=== PATIENT | male | born 1950 | race Two or more races ===

== ENCOUNTER 2024-10-06 09:53 | Outpatient (CLI) | payer OTHER | END 2024-10-06 10:00 | disposition home or self-care (01) | LOC: NUCLEAR 09:53 | DX: I73.9 Peripheral vascular disease, unspecified (principal); I87.2 Venous insufficiency (chronic) (peripheral) ==

== ENCOUNTER 2024-10-22 09:51 | Outpatient (CLI) | payer OTHER | END 2024-10-22 09:54 | disposition home or self-care (01) | LOC: NUCLEAR 09:51 | PROVIDERS: ATTEND Internal Medicine | DX: I87.2 Venous insufficiency (chronic) (peripheral) (principal); I73.9 Peripheral vascular disease, unspecified ==

== ENCOUNTER 2025-03-02 14:05 | Emergency (ER) | payer OTHER ==
[~2025-03-02] VITALS: Ht 165.1 cm; Wt 70.3 kg
[2025-03-02 14:14] VITALS: BP 132/82; O2SAT 100
[2025-03-02] MEDS ORDERED: LOSARTAN POTASS25 MG PO (14:15)
[2025-03-02] MEDS ORDERED: ATORVASTATIN CA10 MG PO (14:15)
[2025-03-02] MEDS ORDERED: GABAPENTIN100 M2 PO (14:15)
[2025-03-02] MEDS ORDERED: HUMULIN 70100 UNIT/2 SQ (14:15)
[2025-03-02 15:48] LABS: HEMATOCRIT 35.6 % (39.0-48.0); HEMOGLOBIN 12.2 g/dL (13-16.00); MEAN CELL VOLUME 94.1 fL (80.0-100.00); MEAN CORPUSCULAR HEMOGLOBIN 32.3 pg (27.00-32.0); MEAN CORPUSCULAR HGB CONC 34.3 g/dl (32.0-36.0); PLATELET COUNT 161 K/uL (150-450); RED BLOOD COUNT 3.78 M/uL (4.00-6.00); RED CELL DISTRIBUTION WIDTH 13.3 % (11.5-14.5)
[2025-03-02 16:05] LABS: URINE APPEARANCE Cloudy; URINE BILIRRUBIN Negative (NEGATIVE); URINE BLOOD Negative; URINE COLOR Yellow; URINE GLUCOSE Negative (NEGATIVE); URINE KETONE Negative (NEGATIVE); URINE LEUKOCYTE Large; URINE NITRATE Positive; URINE PROTEIN Negative (NEGATIVE); URINE UROBILINOGEN 0.2 E.U./dl
[2025-03-02 16:08] LABS: URINE EPITHELIAL CELLS 16.1 uL (0.0-38.8); URINE RBC 3.8 uL (0.0-20.8); URINE WBC 271.1 uL (0.0-23.2)
[2025-03-02 16:09] LABS: INR 1.11; PARTIAL THROMBOPLASTIN TIME 26.8 SECONDS (22.0-34.0)
[2025-03-02 16:14] LABS: URINE BACTERIA > 9821.5 uL (0.0-1933); URINE CAST 0.44 uL (0.0-1.40)
[2025-03-02 16:19] LABS: ALBUMIN 3.2 gm/dL (3.4-5.0); BILIRUBIN TOTAL 0.32 mg/dL (0.3-1.2); CALCIUM 8.9 mg/dL (8.5-10.1); CREATININE SERUM 1.1 mg/dL (0.70-1.30); GFR 65.26; GLOBULINA 4.6 G/DL (2.4-3.5); POTASSIUM 3.75 mEq/L (3.5-5.1); TOTAL PROTEIN 7.8 gm/dL (6.4-8.2)
[2025-03-02] MEDS ORDERED: CEFTRIAXONE SODIUM 1,000 MG VIAL ONE (16:54)
[2025-03-02] MEDS ORDERED: CEFTRIAXONE SODIUM 1,000 MG VIAL IM ONE (17:00)
[2025-03-02] MEDS ORDERED: CEFUROXIME500 MG PO (17:18)
[2025-03-02] MEDS ORDERED: PEPCID AC20 MG PO (17:18)
[2025-03-02] MEDS ORDERED: LIDOCAINE HCL 1% 10ML VIAL ONE (21:25)
== END 2025-03-03 00:43 | disposition home or self-care (01) ==
LOC: ER 14:05
PROVIDERS: General Practice
DX: S01.112A Laceration without foreign body of left eyelid and periocular area, initial encounter (principal); W17.89XA Other fall from one level to another, initial encounter; Y93.89 Activity, other specified; Y92.89 Other specified places as the place of occurrence of the external cause; Y99.9 Unspecified external cause status; R55 Syncope and collapse; E11.9 Type 2 diabetes mellitus without complications; Z79.4 Long term (current) use of insulin; I10 Essential (primary) hypertension
CPT/HCPCS: 12011; 36415; 70450; 71045; 93005; 96372; 99284; J0696

== ENCOUNTER 2025-03-10 09:15 | Emergency (ER) | payer OTHER ==
[~2025-03-10] VITALS: Ht 165.1 cm; Wt 70.3 kg
[~2025-03-10 09:15] MED LIST: ATORVASTATIN CA10 MG PO; CEFUROXIME500 MG PO; GABAPENTIN100 M2 PO; HUMULIN 70100 UNIT/2 SQ; LOSARTAN POTASS25 MG PO; PEPCID AC20 MG PO
== END 2025-03-10 09:59 | disposition home or self-care (01) ==
LOC: ER 09:15
DX: Z48.02 Encounter for removal of sutures (principal)

== ENCOUNTER 2025-07-13 08:16 | Inpatient (IN) | payer OTHER ==
[~2025-07-13] VITALS: Ht 165.1 cm; Wt 81.6 kg
[2025-07-13] MEDS ORDERED: LASIX20 MG PO (08:32)
[2025-07-13] MEDS ORDERED: 0.9 % SODIUM CHLORIDE 1,000 ML IV SCH ×3 (08:45→19:15)
[2025-07-13 09:18] LABS: BASO % 0.1 % (0.1-1.2); EOS # 0.02 (0.04-0.54); EOS % 0.3 % (0.7-7.0); LYMPH # 1.03 (1.18-3.74); LYMPH % 14.6 % (19.3-53.1); MEAN PLATELET VOLUME 10.00 fl (9.4-12.4); MONO # 0.54 (0.24-0.82); MONO % 7.6 % (4.7-12.5); NEUT # 5.42 (1.56-6.13); NEUT % 76.8 % (34.0-71.1); RED CELL DISTRIBUTION WIDTH 12.3 % (11.6-14.4)
[2025-07-13 09:42] LABS: BUN CREA RATIO 33.0 (7.0-25.0); CREATININE SERUM 0.57 mg/dL (0.70-1.30); GFR 138.98; GLUCOSE FASTING 151.0 mg/dL (65-100); INR 1.15; OSMOLALITY SERUM 290.0 MOSM/KG (275-295)
[2025-07-13 09:54] LABS: COVID-19 AG NEGATIVE (NEGATIVE)
[2025-07-13 10:34] LABS: URINE APPEARANCE Clear; URINE BILIRRUBIN Negative (NEGATIVE); URINE BLOOD Small; URINE COLOR Yellow; URINE GLUCOSE Negative (NEGATIVE); URINE LEUKOCYTE Negative; URINE NITRATE Negative; URINE PROTEIN 30 (NEGATIVE); URINE UROBILINOGEN 1.0 E.U./dl
[2025-07-13 10:39] LABS: URINE BACTERIA 10.7 uL (0.0-1933); URINE EPITHELIAL CELLS 9.0 uL (0.0-38.8); URINE RBC 66.7 uL (0.0-20.8); URINE WBC 9.5 uL (0.0-23.2)
[2025-07-13 10:46] LABS: URINE CAST 0.29 uL (0.0-1.40); URINE KETONE 80 (NEGATIVE)
[2025-07-13] MEDS ORDERED: FAMOTIDINE/PF 20 MG in 0.9 % SODIUM CHLORIDE 8 ML IV PUSH SCH (15:12)
[2025-07-13] MEDS ORDERED: DEXTROSE 50 % IN WATER 0.5 G/ML DISP.SYRIN IV PRN (15:15)
[2025-07-13] MEDS ORDERED: INSULIN LISPRO 1,000 UNIT/10 ML UNITS SUBCUTANEO PRN (15:15)
[2025-07-13] MEDS ORDERED: ATORVASTATIN CALCIUM 10 MG TABLET PO SCH (17:00)
[2025-07-13] MEDS ORDERED: MORPHINE SULFATE 2 MG/ML CARTRIDGE IV PRN (18:00)
[2025-07-13] MEDS ORDERED: ACETAMINOPHEN 500 MG GEL..CAP PO PRN (18:00)
[2025-07-13] MEDS ORDERED: MEPERIDINE HCL/PF 50 MG/ML VIAL IM PRN (19:15)
[2025-07-13] MEDS ORDERED: PROMETHAZINE HCL 50 MG/ML AMPUL IM PRN (19:15)
[2025-07-13 23:35] LABS: INR 1.17
[2025-07-13 23:52] LABS: URINE APPEARANCE CLEAR; URINE BILIRRUBIN NEGATIVE (NEGATIVE); URINE COLOR YELLOW; URINE GLUCOSE NEGATIVE (NEGATIVE); URINE KETONE NEGATIVE (NEGATIVE)
[2025-07-13 23:53] LABS: URINE BLOOD MODERATE; URINE NITRATE NEGATIVE; URINE PROTEIN TRACE (NEGATIVE); URINE UROBILINOGEN 1.0 E.U./dl
[2025-07-13 23:54] LABS: URINE EPITHELIAL CELLS 8.9 uL (0.0-38.8); URINE LEUKOCYTE TRACE; URINE RBC 101.0 uL (0.0-20.8); URINE WBC 19.8 uL (0.0-23.2)
[2025-07-13 23:55] LABS: URINE BACTERIA 19.1 uL (0.0-1933); URINE CAST 0.73 uL (0.0-1.40)
[2025-07-14 02:30] VITALS: BP 130/75; O2SAT 96
[2025-07-14 06:51] LABS: BASO % 0.1 % (0.1-1.2); EOS # 0.12 (0.04-0.54); EOS % 1.8 % (0.7-7.0); LYMPH # 1.43 (1.18-3.74); LYMPH % 21.3 % (19.3-53.1); MEAN PLATELET VOLUME 10.90 fl (9.4-12.4); MONO # 0.64 (0.24-0.82); MONO % 9.6 % (4.7-12.5); NEUT # 4.48 (1.56-6.13); NEUT % 66.9 % (34.0-71.1); RED CELL DISTRIBUTION WIDTH 12.5 % (11.6-14.4)
[2025-07-14 07:11] LABS: ALT/SGPT 39.0 U/L (12-78); AST/SGOT 44.0 U/L (15-37); BILIRUBIN TOTAL 1.43 mg/dL (0.3-1.2); BUN CREA RATIO 35.0 (7.0-25.0); CREATININE SERUM 0.48 mg/dL (0.70-1.30); GFR 169.46; GLOBULINA 4.2 G/DL (2.4-3.5); GLUCOSE FASTING 107.0 mg/dL (65-100); OSMOLALITY SERUM 285.0 MOSM/KG (275-295)
[2025-07-14 08:57] VITALS: BP 140/71; O2SAT 96
[2025-07-14] MEDS ORDERED: LOSARTAN POTASSIUM 25 MG TABLET PO SCH (09:00)
[2025-07-14] MEDS ORDERED: POTASSIUM PHOS,M-BASIC-D-BASIC 9 MM in 0.9 % SODIUM CHLORIDE 250 ML IV NR (12:30)
[2025-07-14] MEDS ORDERED: VANCOMYCIN HCL 1,000 MG VIAL ONE (14:46)
[2025-07-14] MEDS ORDERED: TRANEXAMIC ACID 100MG/1ML (1000MG) AMPUL ONE (14:47)
[2025-07-14] MEDS ORDERED: TRANEXAMIC ACID 1,000 MG in 0.9 % SODIUM CHLORIDE 100 ML IV ONE (17:15)
[2025-07-14] MEDS ORDERED: VANCOMYCIN HCL 1,000 MG VIAL IR ONE (17:15)
[2025-07-14] MEDS ORDERED: VANCOMYCIN HCL 1,000 MG in 0.9 % SODIUM CHLORIDE 250 ML IV ONE (17:15)
[2025-07-14] MEDS ORDERED: OxyCODONE HCL 5 MG TABLET (ROXICODONE) PO PRN (19:00)
[2025-07-14] MEDS ORDERED: MORPHINE SULFATE 4 MG/ML CARTRIDGE IV PRN (19:00)
[2025-07-14] MEDS ORDERED: SODIUM CHLORIDE 0.45 % 1,000 ML IV SCH (19:00)
[2025-07-14] MEDS ORDERED: ONDANSETRON HCL 2 MG/ML VIAL IV PRN (19:00)
[2025-07-14] MEDS ORDERED: FAMOTIDINE/PF 20 MG/2 ML VIAL ONE (20:03)
[2025-07-14] MEDS ORDERED: VANCOMYCIN HCL 1,000 MG in 0.9 % SODIUM CHLORIDE 250 ML IV SCH (21:00)
[2025-07-14 22:47] VITALS: BP 120/65; O2SAT 96
[2025-07-15] MEDS ORDERED: ACETAMINOPHEN 500 MG GEL..CAP PO SCH
[2025-07-15] MEDS ORDERED: GABAPENTIN 300 MG CAPSULE PO SCH (01:00)
[2025-07-15 02:13] VITALS: BP 119/69; O2SAT 95
[2025-07-15 06:52] LABS: BASO % 0.1 % (0.1-1.2); EOS # 0.00 (0.04-0.54); EOS % 0.0 % (0.7-7.0); LYMPH # 1.09 (1.18-3.74); LYMPH % 15.5 % (19.3-53.1); MEAN PLATELET VOLUME 10.50 fl (9.4-12.4); MONO # 0.67 (0.24-0.82); MONO % 9.5 % (4.7-12.5); NEUT # 5.24 (1.56-6.13); NEUT % 74.5 % (34.0-71.1); RED CELL DISTRIBUTION WIDTH 12.3 % (11.6-14.4)
[2025-07-15] MEDS ORDERED: APIXABAN 2.5 MG TABLET PO SCH (09:00)
[2025-07-15] MEDS ORDERED: SENNOSIDES 1 TAB TABLET PO SCH (09:00)
[2025-07-15] MEDS ORDERED: VANCOMYCIN HCL 1,000 MG VIAL IV SCH (09:00)
[2025-07-15 09:44] VITALS: BP 127/74; O2SAT 92
[2025-07-15 18:15] VITALS: BP 114/74; O2SAT 97
[2025-07-15] MEDS ORDERED: INSULIN GLARGINE,HUM.REC.ANLOG 1,000 UNITS/10 ML UNITS SUBCUTANEO NR (20:00)
[2025-07-16 01:04] VITALS: BP 166/70; O2SAT 96
[2025-07-16 05:49] LABS: BASO % 0.1 % (0.1-1.2); EOS # 0.08 (0.04-0.54); EOS % 0.9 % (0.7-7.0); LYMPH # 1.80 (1.18-3.74); LYMPH % 21.2 % (19.3-53.1); MEAN PLATELET VOLUME 10.20 fl (9.4-12.4); MONO # 0.74 (0.24-0.82); MONO % 8.7 % (4.7-12.5); NEUT # 5.84 (1.56-6.13); NEUT % 68.7 % (34.0-71.1); RED CELL DISTRIBUTION WIDTH 12.4 % (11.6-14.4)
[2025-07-16 06:57] LABS: ALT/SGPT 47.0 U/L (12-78); AST/SGOT 41.0 U/L (15-37); BILIRUBIN TOTAL 0.92 mg/dL (0.3-1.2); BUN CREA RATIO 24.0 (7.0-25.0); CREATININE SERUM 0.58 mg/dL (0.70-1.30); GFR 136.22; GLOBULINA 4.1 G/DL (2.4-3.5); GLUCOSE FASTING 179.0 mg/dL (65-100); OSMOLALITY SERUM 281.0 MOSM/KG (275-295)
[2025-07-16 08:00] VITALS: BP 149/87
[2025-07-16] MEDS ORDERED: IRON FUM,PS/FOLIC ACID/VITC/B3 1 CAP CAPSULE PO SCH (09:00)
[2025-07-16] MEDS ORDERED: INSULIN LISPRO 1,000 UNIT/10 ML UNITS SUBCUTANEO SCH (12:00)
[2025-07-16] MEDS ORDERED: INSULIN NPH HUM/REG INSULIN HM 1,000 UNIT/10 ML UNITS SUBCUTANEO SCH (17:00)
[2025-07-16] MEDS ORDERED: INSULIN GLARGINE,HUM.REC.ANLOG 1,000 UNITS/10 ML UNITS SUBCUTANEO SCH (17:00)
[2025-07-16 18:19] VITALS: BP 133/71; O2SAT 96
[2025-07-17 00:59] VITALS: BP 108/67; O2SAT 97
[2025-07-17] MEDS ORDERED: INSULIN NPH HUM/REG INSULIN HM 1,000 UNIT/10 ML UNITS SUBCUTANEO SCH (08:00)
[2025-07-17 08:23] VITALS: BP 121/68; O2SAT 98
[2025-07-17] MEDS ORDERED: ELIQUIS2.5 MG PO (12:49)
[2025-07-17] MEDS ORDERED: INTEGRA F CAPS1 EACH PO (12:49)
[2025-07-17] MEDS ORDERED: Lipitor 10MG TABLET PO (12:49)
[2025-07-17] MEDS ORDERED: LOSARTAN POTASS25 MG PO (12:49)
[2025-07-17] MEDS ORDERED: FAMOTIDINE20 MG PO (12:50)
[2025-07-17] MEDS ORDERED: FUROSEMIDE20 MG PO (12:50)
[2025-07-17] MEDS ORDERED: GABAPENTIN300 MG PO (12:50)
[2025-07-17] MEDS ORDERED: PAIN RELIEVER500 M2 PO (12:50)
[2025-07-17] MEDS ORDERED: HUMULIN 70100 UNIT/2 SUBCUTANEO ×2 (12:51)
[2025-07-17] MEDS ORDERED: SENOKOT8.6 M1 PO (12:51)
[2025-07-17 18:32] VITALS: BP 146/80; O2SAT 98
== END 2025-07-17 21:09 | disposition home or self-care (01) | DRG 522 ==
LOC: ER 08:16 → MEDJ 15:42 → O/R 15:42 → MEDJ 19:51
PROVIDERS: Emergency Medicine; Orthopaedic Surgery; ADMIT Internal Medicine; ATTEND Internal Medicine
PROC: 0SR90JZ Replacement of Right Hip Joint with Synthetic Substitute, Open Approach (ICD-10-PCS; principal; 2025-07-14 15:30)
DX: S72.011A Unspecified intracapsular fracture of right femur, initial encounter for closed fracture (principal); S70.01XA Contusion of right hip, initial encounter; W19.XXXA Unspecified fall, initial encounter; S72.041A Displaced fracture of base of neck of right femur, initial encounter for closed fracture; M16.11 Unilateral primary osteoarthritis, right hip; E11.9 Type 2 diabetes mellitus without complications; Z79.4 Long term (current) use of insulin; I10 Essential (primary) hypertension